=== PATIENT | male | born 1930 | race Asian ===

== ENCOUNTER 2017-01-02 12:37 | Inpatient (IN) | payer MEDICARE, OTHER ==
[~2017-01-02] VITALS: Ht 162.6 cm; Wt 54.4 kg
[~2017-01-02 12:37] MED LIST: UNOBMED
--- NOTE | 2017-01-02 12:38 | Emergency Room Report ---
History of Present Illness General Chief Complaint: Dyspnea/Respdistress Source: Patient, EMS Present Illness HPI The patient presents with worsening dyspnea over the last 3-4 months. It's worse at rest when he is supine. He also states isn't exertional quality to it to. The medics were called to the private physician's office with the complaint of chest pain. The patient denies is to the ER nurse however he also denies any other medical problems and other people with him states that he has congestive heart failure and hypertension. Nonsmoker. Paramedics treated the patient with aspirin and nitroglycerin. They stated this did not help him. Prostate problems. Frequency. Hip replacement. No fevers, chills, NVD, joint pain, [place], depression, rashes. Allergies: Coded Allergies: No Known Allergies (Unverified , 01/02/17) Patient History Past Medical History: see triage record Past Surgical History: other - R hip Social History: Reports: smoking - former Social History Narrative at home Reviewed Nursing Documentation: PMH: Agreed, PSxH: Agreed Review of Systems All Other Systems: negative except mentioned in HPI Physical Exam Vital Signs Date Time Temp Pulse Resp B/P (MAP) Pulse Ox O2 Delivery O2 Flow Rate FiO2 01/02/17 12:27 97.9 82 18 122/65 96 Room Air Sp02 EP Interpretation: reviewed, normal General Appearance: well appearing, no apparent distress, GCS 15 Head: normocephalic Eyes: bilateral eye normal inspection ENT: moist mucus membranes Neck: supple Respiratory: chest non-tender, lungs clear, normal breath sounds Cardiovascular #1: regular rate, rhythm, no edema Cardiovascular #2: 2+ radial (R) Gastrointestinal: normal inspection, normal bowel sounds, non tender, no mass, non-distended Musculoskeletal: back normal, gait/station normal, normal range of motion Neurologic: alert, oriented x3, grossly normal Psychiatric: mood/affect normal Skin: normal inspection, warm/dry Medical Decision Making Diagnostic Impression: Primary Impression: Chest pain Qualified Codes: R07.9 - Chest pain, unspecified Additional Impression: Dyspnea Qualified Codes: R06.00 - Dyspnea, unspecified ER Course The patient presents with shortness of breath for 3 or 4 months although his doctor's office suggested he was having chest pain today. Differential includes acute myocardial infarction, acute coronary syndrome, congestive heart failure, costochondritis, pulmonary embolus, bronchitis, pneumothorax amongst others. The patient is a very poor historian as he denies medical problems but has congestive heart failure and hypertension. Evaluation will be with EKG, labs and chest x-ray. The plan is based on results he'll be treated. Patient received aspirin in the field. Based on the fact of his age and his poor history, the patient will be admitted for observation and cardiology evaluation. EKG shows left ventricular hypertrophy and left axis deviation. No acute changes. Chest x-ray shows cardiomegaly and increased gomez bilaterally. There is no infiltrate. Labs are significant for negative troponin. The patient is unchanged however nitroglycerin is given to the patient. The patient admitted to telemetry for cardiac observation. Dr. Ferguson came to evaluate the patient. Laboratory Tests Test 01/02/17 12:56 01/02/17 19:20 01/03/17 07:50 01/03/17 17:18 White Blood Count 4.8 K/UL (4.8-10.8) 7.0 K/UL (4.8-10.8) Red Blood Count 4.82 M/UL (4.70-6.10) 4.72 M/UL (4.70-6.10) Hemoglobin 14.3 G/DL (14.2-18.0) 14.7 G/DL (14.2-18.0) Hematocrit 43.8 % (42.0-52.0) 43.0 % (42.0-52.0) Mean Corpuscular Volume 91 FL (80-99) 91 FL (80-99) Mean Corpuscular Hemoglobin 29.7 PG (27.0-31.0) 31.1 PG (27.0-31.0) H Mean Corpuscular Hemoglobin Concent 32.6 G/DL (32.0-36.0) 34.1 G/DL (32.0-36.0) Red Cell Distribution Width 12.0 % (11.6-14.8) 11.9 % (11.6-14.8) Platelet Count 170 K/UL (150-450) 177 K/UL (150-450) Mean Platelet Volume 7.2 FL (6.5-10.1) 7.2 FL (6.5-10.1) Neutrophils (%) (Auto) 65.0 % (45.0-75.0) 79.4 % (45.0-75.0) H Lymphocytes (%) (Auto) 22.0 % (20.0-45.0) 12.3 % (20.0-45.0) L Monocytes (%) (Auto) 8.8 % (1.0-10.0) 5.9 % (1.0-10.0) Eosinophils (%) (Auto) 3.1 % (0.0-3.0) H 1.5 % (0.0-3.0) Basophils (%) (Auto) 1.2 % (0.0-2.0) 0.9 % (0.0-2.0) Prothrombin Time 10.5 SEC (9.30-11.50) 10.7 SEC (9.30-11.50) Prothrombin Time INR 1.0 (0.9-1.1) 1.0 (0.9-1.1) PTT 29 SEC (23-33) 33 SEC (23-33) Urine Color Pale yellow Urine Appearance Clear Urine pH 6 (4.5-8.0) Urine Specific [place] 1.020 (1.005-1.035) Urine Protein Negative (NEGATIVE) Urine Glucose (UA) Negative (NEGATIVE) Urine Ketones Negative (NEGATIVE) Urine Occult Blood 1+ (NEGATIVE) H Urine Nitrite Negative (NEGATIVE) Urine Bilirubin Negative (NEGATIVE) Urine Urobilinogen Normal MG/DL (0.0-1.0) Urine Leukocyte Esterase Negative (NEGATIVE) Urine RBC 0-2 /HPF (0 - 0) H Urine WBC 0-2 /HPF (0 - 0) Urine Squamous Epithelial Cells Occasional /LPF Urine Bacteria Occasional /HPF (NONE) Urine Mucus Moderate /LPF (NONE/OCC) H Sodium Level 141 mEQ/L (135-145) 135 mEQ/L (135-145) Potassium Level 3.2 mEQ/L (3.4-4.9) L 4.3 mEQ/L (3.4-4.9) Chloride Level 109 mEQ/L (98-107) H 100 mEQ/L (98-107) Carbon Dioxide Level 21 mEQ/L (20-30) 21 mEQ/L (20-30) Anion Gap 11 (5-15) 14 (5-15) Blood Urea Nitrogen 12 mg/dL (7-23) 18 mg/dL (7-23) Creatinine 1.0 mg/dL (0.7-1.2) 0.9 mg/dL (0.7-1.2) Estimate Glomerular Filtration Rate mL/min (>60) mL/min (>60) Glucose Level 110 mg/dL (74-106) H 138 mg/dL (74-106) H Calcium Level 6.9 mg/dL (8.6-10.2) L 8.8 mg/dL (8.6-10.2) # Total Bilirubin 0.7 mg/dL (0.0-1.2) Aspartate Amino Transferase (AST) 13 U/L (5-40) Alanine Aminotransferase (ALT) 10 U/L (3-41) Alkaline Phosphatase 53 U/L (40-129) Total Creatine Kinase 52 U/L (38-174) Troponin I < 0.30 ng/mL (<=0.30) < 0.30 ng/mL (<=0.30) < 0.30 ng/mL (<=0.30) Pro-B-Type Natriuretic Peptide 29 pg/mL (0-450) Total Protein 5.3 g/dL (6.6-8.7) L Albumin 3.1 g/dL (3.5-5.2) L Globulin 2.2 g/dL Albumin/Globulin Ratio 1.4 (1.0-2.7) C-Reactive Protein, Quantitative < 0.3 mg/dL (< 0.5) Triglycerides Level 75 mg/dL (< 150) Cholesterol Level 166 mg/dL (< 200) LDL Cholesterol 99 mg/dL (60-99) HDL Cholesterol 52 mg/dL (> 60) Cholesterol/HDL Ratio 3.2 (3.3-4.4) L Thyroid Stimulating Hormone (TSH) 0.947 uIU/mL (0.300-4.500) Ammonia 47 umol/L (16-60) Hepatitis A IgM Antibody Pending Hepatitis B Surface Antigen Pending Hepatitis B Core IgM Antibody Pending Hepatitis C Antibody Pending EKG Diagnostic Results Rate: normal Rhythm: NSR ST Segments: no acute changes - LVH and LAD ASA given to the pt in ED: Yes - field Rhythm Strip Diag. Results EP Interpretation: yes Rhythm: NSR, no PVC's, no ectopy Chest X-Ray Diagnostic Results Chest X-Ray Diagnostic Results : Chest X-Ray Ordered: Yes # of Views/Limited/Complete: 1 View Indication: Shortness of Breath EP Interpretation: Yes Interpretation: no consolidation, no effusion, no pneumothorax, other - cardiomegally and Status: improved Disposition: ADMITTED INPATIENT Condition: Serious Jam Hernandez M.D. Jan 02, 2017 12:38
[2017-01-02 13:10] VITALS: BP 130/72
[2017-01-02 13:13] LABS: BASOPHILS % (AUTO) 1.2 % (0.0-2.0); EOSINOPHILS % (AUTO) 3.1 % (0.0-3.0); MEAN CORPUSCULAR HEMOGLOBIN 29.7 PG (27.0-31.0); MEAN CORPUSCULAR HGB CONC 32.6 G/DL (32.0-36.0); MEAN CORPUSCULAR VOLUME 91 FL (80-99); MEAN PLATELET VOLUME 7.2 FL (6.5-10.1); MONOCYTES % (AUTO) 8.8 % (1.0-10.0); PLATELET COUNT 170 K/UL (150-450); RED BLOOD COUNT 4.82 M/UL (4.70-6.10); WHITE BLOOD COUNT 4.8 K/UL (4.8-10.8)
[2017-01-02 13:14] LABS: APPEARANCE,URINE CLEAR; KETONES,URINE NEGATIVE (NEGATIVE); LEUKOCYTE ESTERASE ,URINE NEGATIVE (NEGATIVE); NITRITE,URINE NEGATIVE (NEGATIVE); PH,URINE 6 (4.5-8.0); PROTEIN,URINE NEGATIVE (NEGATIVE); UROBILINOGEN,URINE NORMAL MG/DL (0.0-1.0)
[2017-01-02 13:19] LABS: PROTHROMBIN TIME 10.5 SEC (9.30-11.50)
[2017-01-02 13:23] LABS: BACTERIA,URINE OCCASIONAL /HPF; MUCUS,URINE MODERATE /LPF (NONE/OCC); RBC,URINE 0-2 /HPF (0 - 0); SQUAMOUS EPITHELIAL CELL,UR OCCASIONAL /LPF (NONE/OCC); WBC,URINE 0-2 /HPF (0 - 0)
[2017-01-02 13:24] LABS: ALANINE AMINOTRANSFERASE 10 U/L (3-41); ALBUMIN/GLOBULIN RATIO 1.4 (1.0-2.7); ANION GAP 11 (5-15); ASPARTATE AMINO TRANSFERASE 13 U/L (5-40); CALCIUM 6.9 mg/dL (8.6-10.2); CARBON DIOXIDE 21 mEQ/L (20-30); CHLORIDE 109 mEQ/L (98-107); HEMOLYSIS 13; POTASSIUM 3.2 mEQ/L (3.4-4.9); SODIUM 141 mEQ/L (135-145); TOTAL PROTEIN 5.3 g/dL (6.6-8.7)
[2017-01-02 13:25] LABS: TROPONIN I < 0.30 ng/mL (<=0.30)
[2017-01-02] MEDS ORDERED: Nitroglycerin 2% oint pkt TOPIC ONE (14:30)
[2017-01-02 14:57] VITALS: BP 126/68
[2017-01-02] MEDS ORDERED: DuoNeb 0.5-3(2.5)mg/3ml neb HHN PRN (15:45)
[2017-01-02] MEDS ORDERED: Diltiazem 25mg/5ml IV PRN (15:45)
[2017-01-02] MEDS ORDERED: Morphine Sulfate 2mg/ml Inj IVP PRN (15:45)
[2017-01-02] MEDS ORDERED: Ketorolac 30mg Inj IV PRN (15:45)
[2017-01-02] MEDS ORDERED: Nitroglycerin Subl 0.4mg tab (Bottle Of 25) SL PRN (15:45)
[2017-01-02] MEDS ORDERED: Enalaprilat 2.5mg/2ml Inj IV PRN (15:45)
[2017-01-02] MEDS ORDERED: Miralax 17gm pkt ORAL PRN (15:45)
[2017-01-02 16:00] VITALS: BP 140/71
[2017-01-02] MEDS ORDERED: KCl 10% 40mEq/30ml liquid NG ONE (17:15)
[2017-01-02] MEDS ORDERED: KCl 10% 40mEq/30ml liquid ORAL SCH (17:45)
[2017-01-02] MEDS ORDERED: KCl 10% 40mEq/30ml liquid NG SCH (17:45)
[2017-01-02] MEDS ORDERED: KCl 10% 20 mEq/15ml liquid ORAL SCH (17:45)
[2017-01-02] MEDS ORDERED: Pneumococcal Vaccine 25mcg/0.5ml IM ONE (18:30)
[2017-01-02 20:03] VITALS: BP 111/67
[2017-01-02 20:20] LABS: TROPONIN I < 0.30 ng/mL (<=0.30)
[2017-01-02] MEDS: Heparin 5000 units/ml inj SUBQ SCH (20:33)
[2017-01-02 23:54] VITALS: BP 119/71
[2017-01-03 03:56] VITALS: BP 121/68
[2017-01-03 08:00] VITALS: BP 117/56
[2017-01-03] MEDS: Aspirin Baby 81mg ORAL SCH (08:10)
[2017-01-03] MEDS: Heparin 5000 units/ml inj SUBQ SCH ×2 (08:15→20:50)
[2017-01-03 08:40] LABS: BASOPHILS % (AUTO) 0.9 % (0.0-2.0); EOSINOPHILS % (AUTO) 1.5 % (0.0-3.0); LYMPHOCYTES % (AUTO) 12.3 % (20.0-45.0); MEAN CORPUSCULAR HEMOGLOBIN 31.1 PG (27.0-31.0); MEAN CORPUSCULAR HGB CONC 34.1 G/DL (32.0-36.0); MEAN CORPUSCULAR VOLUME 91 FL (80-99); MEAN PLATELET VOLUME 7.2 FL (6.5-10.1); MONOCYTES % (AUTO) 5.9 % (1.0-10.0); NEUTROPHILS % (AUTO) 79.4 % (45.0-75.0); PLATELET COUNT 177 K/UL (150-450); RED BLOOD COUNT 4.72 M/UL (4.70-6.10); RED CELL DISTRIBUTION WIDTH 11.9 % (11.6-14.8)
[2017-01-03 08:43] LABS: PROTHROMBIN TIME 10.7 SEC (9.30-11.50); TROPONIN I < 0.30 ng/mL (<=0.30)
[2017-01-03 08:45] LABS: CHOLESTEROL 166 mg/dL (< 200); CHOLESTEROL/HDL RATIO 3.2 (3.3-4.4); CRP QUANT < 0.3 mg/dL (< 0.5); HEMOLYSIS 1; LDL CHOLESTEROL (CALC.) 99 mg/dL (60-99)
--- NOTE | 2017-01-03 08:47 | History and Physical ---
History of Present Illness General Date patient seen: Jan 02, 2017 Time patient seen: 17:00 Reason for Hospitalization: Dyspnea/Respdistress Present Illness HPI 86 yea old male with hx of HTN, CAD, presented to ER with worsening dyspnea over the last 3-4 months. It's worse at rest when he is supine. The medics were called to the private physician's office with the complaint of chest pain. Paramedics treated the patient with aspirin and nitroglycerin. He is admitted to telemetry for further w/u,. Allergies: Coded Allergies: No Known Allergies (Unverified , 01/02/17) Medication History Miscellaneous Medications Unable to Obtain Medications (Unable To Obtain Meds), (Reported) Patient History Healthcare decision maker Hayden Huffman (son) Resuscitation status Full Code Advanced Directive on File Past Medical/Surgical History Past Medical/Surgical History: (1) CAD (coronary artery disease) (2) Hypertension Review of Systems All Other Systems: negative except mentioned in HPI Physical Exam General Appearance: WD/WN Lines, tubes and drains: peripheral, central line HEENT: normocephalic, atraumatic Neck: non-tender, normal alignment, normal inspection Respiratory/Chest: chest wall non-tender, lungs clear Breasts: no masses Cardiovascular/Chest: normal peripheral pulses, normal rate Last 24 Hour Vital Signs Date Time Temp Pulse Resp B/P (MAP) Pulse Ox O2 Delivery O2 Flow Rate FiO2 01/03/17 04:00 67 01/03/17 03:56 98.3 77 18 121/68 96 Room Air 01/03/17 00:00 57 01/02/17 23:54 97.8 79 19 119/71 96 Room Air 01/02/17 20:03 97.3 86 20 111/67 95 Room Air 01/02/17 20:00 88 01/02/17 19:45 91 18 Room Air 01/02/17 16:00 97.5 72 20 140/71 95 Room Air 01/02/17 16:00 70 01/02/17 15:25 97.9 67 24 126/68 97 Room Air 01/02/17 14:57 97.9 67 24 126/68 97 Room Air 01/02/17 14:56 126/68 01/02/17 13:10 82 24 Room Air 01/02/17 13:10 97.9 82 24 130/72 95 Room Air 01/02/17 12:27 97.9 82 18 122/65 96 Room Air Laboratory Tests Test 01/02/17 12:56 01/02/17 19:20 01/03/17 07:50 White Blood Count 4.8 K/UL (4.8-10.8) 7.0 K/UL (4.8-10.8) Red Blood Count 4.82 M/UL (4.70-6.10) 4.72 M/UL (4.70-6.10) Hemoglobin 14.3 G/DL (14.2-18.0) 14.7 G/DL (14.2-18.0) Hematocrit 43.8 % (42.0-52.0) 43.0 % (42.0-52.0) Mean Corpuscular Volume 91 FL (80-99) 91 FL (80-99) Mean Corpuscular Hemoglobin 29.7 PG (27.0-31.0) 31.1 PG (27.0-31.0) H Mean Corpuscular Hemoglobin Concent 32.6 G/DL (32.0-36.0) 34.1 G/DL (32.0-36.0) Red Cell Distribution Width 12.0 % (11.6-14.8) 11.9 % (11.6-14.8) Platelet Count 170 K/UL (150-450) 177 K/UL (150-450) Mean Platelet Volume 7.2 FL (6.5-10.1) 7.2 FL (6.5-10.1) Neutrophils (%) (Auto) 65.0 % (45.0-75.0) 79.4 % (45.0-75.0) H Lymphocytes (%) (Auto) 22.0 % (20.0-45.0) 12.3 % (20.0-45.0) L Monocytes (%) (Auto) 8.8 % (1.0-10.0) 5.9 % (1.0-10.0) Eosinophils (%) (Auto) 3.1 % (0.0-3.0) H 1.5 % (0.0-3.0) Basophils (%) (Auto) 1.2 % (0.0-2.0) 0.9 % (0.0-2.0) Prothrombin Time 10.5 SEC (9.30-11.50) Pending Prothromb Time International Ratio 1.0 (0.9-1.1) Pending Activated Partial Thromboplast Time 29 SEC (23-33) Pending Urine Color Pale yellow Urine Appearance Clear Urine pH 6 (4.5-8.0) Urine Specific [place] 1.020 (1.005-1.035) Urine Protein Negative (NEGATIVE) Urine Glucose (UA) Negative (NEGATIVE) Urine Ketones Negative (NEGATIVE) Urine Occult Blood 1+ (NEGATIVE) H Urine Nitrite Negative (NEGATIVE) Urine Bilirubin Negative (NEGATIVE) Urine Urobilinogen Normal MG/DL (0.0-1.0) Urine Leukocyte Esterase Negative (NEGATIVE) Urine RBC 0-2 /HPF (0 - 0) H Urine WBC 0-2 /HPF (0 - 0) Urine Squamous Epithelial Cells Occasional /LPF Urine Bacteria Occasional /HPF (NONE) Urine Mucus Moderate /LPF (NONE/OCC) H Sodium Level 141 mEQ/L (135-145) Potassium Level 3.2 mEQ/L (3.4-4.9) L Chloride Level 109 mEQ/L (98-107) H Carbon Dioxide Level 21 mEQ/L (20-30) Anion Gap 11 (5-15) Blood Urea Nitrogen 12 mg/dL (7-23) Creatinine 1.0 mg/dL (0.7-1.2) Estimat Glomerular Filtration Rate mL/min (>60) Glucose Level 110 mg/dL (74-106) H Calcium Level 6.9 mg/dL (8.6-10.2) L Total Bilirubin 0.7 mg/dL (0.0-1.2) Aspartate Amino Transf (AST/SGOT) 13 U/L (5-40) Alanine Aminotransferase (ALT/SGPT) 10 U/L (3-41) Alkaline Phosphatase 53 U/L (40-129) Total Creatine Kinase 52 U/L (38-174) Troponin I < 0.30 ng/mL (<=0.30) < 0.30 ng/mL (<=0.30) Pending Pro-B-Type Natriuretic Peptide 29 pg/mL (0-450) Total Protein 5.3 g/dL (6.6-8.7) L Albumin 3.1 g/dL (3.5-5.2) L Globulin 2.2 g/dL Albumin/Globulin Ratio 1.4 (1.0-2.7) C-Reactive Protein, Quantitative Pending Triglycerides Level Pending Cholesterol Level Pending LDL Cholesterol Pending HDL Cholesterol Pending Cholesterol/HDL Ratio Pending Thyroid Stimulating Hormone (TSH) Pending Height (Feet): 5 Height (Inches): 4.00 Weight (Pounds): 120 Medications Current Medications Medications (Trade) Dose Ordered Sig/Abbi Route PRN Reason Start Time Stop Time Status Last Admin Dose Admin Acetaminophen (Tylenol) 650 mg Q4H PRN ORAL FEVER 01/02/17 15:45 02/01/17 15:44 Albuterol/ Ipratropium (DuoNeb 0.5-3(2.5)mg/3ml) 3 ml Q4H PRN HHN Shortness of Breath 01/02/17 15:45 01/07/17 15:44 Aspirin (ASA) 162 mg DAILY ORAL 01/03/17 09:00 02/02/17 08:59 01/03/17 08:10 Diltiazem HCl (Cardizem) 10 mg Q1H PRN IV HR > 120 01/02/17 15:45 02/01/17 15:44 Enalaprilat (Vasotec) 2.5 mg Q6H PRN IV SBP > 160 01/02/17 15:45 02/01/17 15:44 Heparin Sodium (Porcine) (Heparin 5000 units/ml) 5,000 units EVERY 12 HOURS SUBQ 01/02/17 21:00 02/01/17 20:59 01/03/17 08:15 Morphine Sulfate (Morphine Sulfate) 2 mg Q4H PRN IVP severe Pain (Pain Scale 7-10) 01/02/17 15:45 01/09/17 15:44 Nitroglycerin (Ntg) 0.4 mg Every 5 Minutes PRN SL Prn Chest Pain 01/02/17 15:45 02/01/17 15:44 Ondansetron HCl (Zofran) 4 mg Q6H PRN IVP Nausea & Vomiting 01/02/17 15:45 02/01/17 15:44 Pantoprazole (Protonix) 40 mg DAILY ORAL 01/03/17 09:00 02/02/17 08:59 01/03/17 08:10 Polyethylene Glycol (Miralax) 17 gm DAILYPRN PRN ORAL Constipation 01/02/17 15:45 02/01/17 15:44 Temazepam (Restoril) 15 mg HSPRN PRN ORAL Insomnia 01/02/17 15:45 01/09/17 15:44 Assessment/Plan Problem List: (1) Dyspnea ICD Codes: R06.00 - Dyspnea, unspecified SNOMED: 663112257 (2) Costochondritis ICD Codes: M94.0 - Chondrocostal junction syndrome [[place]] SNOMED: 79768730 (3) ACS (acute coronary syndrome) ICD Codes: I24.9 - Acute ischemic heart disease, unspecified SNOMED: 567430539 (4) CAD (coronary artery disease) ICD Codes: I25.10 - Atherosclerotic heart disease of [place] coronary artery without angina pectoris SNOMED: 48251680 (5) Hypertension ICD Codes: I10 - Essential (primary) hypertension SNOMED: 88607589 Assessment/Plan echo cardiac evaluation serial ekg, troponin symptomatic treatment pt/ot\ GAIL GONZALEZ Jan 03, 2017 08:47
--- NOTE | 2017-01-03 08:48 | Pulmonology Progress Note ---
Assessment/Plan Problems: (1) Dyspnea (2) Costochondritis (3) ACS (acute coronary syndrome) (4) CAD (coronary artery disease) (5) Hypertension Assessment/Plan check echo cardio to see titrate fio2 dvt prophylaxis watch BP Subjective ROS Limited/Unobtainable: No Constitutional: Reports: no symptoms HEENT: Repors: no symptoms Allergies: Coded Allergies: No Known Allergies (Unverified , 01/02/17) Objective Last 24 Hour Vital Signs Date Time Temp Pulse Resp B/P (MAP) Pulse Ox O2 Delivery O2 Flow Rate FiO2 01/03/17 04:00 67 01/03/17 03:56 98.3 77 18 121/68 96 Room Air 01/03/17 00:00 57 01/02/17 23:54 97.8 79 19 119/71 96 Room Air 01/02/17 20:03 97.3 86 20 111/67 95 Room Air 01/02/17 20:00 88 01/02/17 19:45 91 18 Room Air 01/02/17 16:00 97.5 72 20 140/71 95 Room Air 01/02/17 16:00 70 01/02/17 15:25 97.9 67 24 126/68 97 Room Air 01/02/17 14:57 97.9 67 24 126/68 97 Room Air 01/02/17 14:56 126/68 01/02/17 13:10 82 24 Room Air 01/02/17 13:10 97.9 82 24 130/72 95 Room Air 01/02/17 12:27 97.9 82 18 122/65 96 Room Air General Appearance: WD/WN HEENT: normocephalic, atraumatic Respiratory/Chest: chest wall non-tender, lungs clear Cardiovascular: normal peripheral pulses, regular rhythm Abdomen: normal bowel sounds, soft, non tender, no scars Extremities: no cyanosis Laboratory Tests 01/02/17 12:56: White Blood Count 4.8, Red Blood Count 4.82, Hemoglobin 14.3, Hematocrit 43.8, Mean Corpuscular Volume 91, Mean Corpuscular Hemoglobin 29.7, Mean Corpuscular Hemoglobin Concent 32.6, Red Cell Distribution Width 12.0, Platelet Count 170, Mean Platelet Volume 7.2, Neutrophils (%) (Auto) 65.0, Lymphocytes (%) (Auto) 22.0, Monocytes (%) (Auto) 8.8, Eosinophils (%) (Auto) 3.1H, Basophils (%) (Auto ) 1.2, Prothrombin Time 10.5, Prothromb Time International Ratio 1.0, Activated Partial Thromboplast Time 29, Urine Color Pale yellow, Urine Appearance Clear, Urine pH 6, Urine Specific [place] 1.020, Urine Protein Negative, Urine Glucose (UA) Negative, Urine Ketones Negative, Urine Occult Blood 1+H, Urine Nitrite Negative, Urine Bilirubin Negative, Urine Urobilinogen Normal, Urine Leukocyte Esterase Negative, Urine RBC 0-2H, Urine WBC 0-2, Urine Squamous Epithelial Cells Occasional, Urine Bacteria Occasional, Urine Mucus ModerateH, Sodium Level 141, Potassium Level 3.2L, Chloride Level 109H, Carbon Dioxide Level 21, Anion Gap 11, Blood Urea Nitrogen 12, Creatinine 1.0, Estimat Glomerular Filtration Rate , Glucose Level 110H, Calcium Level 6.9L, Total Bilirubin 0.7, Aspartate Amino Transf (AST/SGOT) 13, Alanine Aminotransferase (ALT/SGPT) 10, Alkaline Phosphatase 53, Total Creatine Kinase 52, Troponin I < 0.30, Pro-B- Type Natriuretic Peptide 29, Total Protein 5.3L, Albumin 3.1L, Globulin 2.2, Albumin/Globulin Ratio 1.4 01/02/17 19:20: Troponin I < 0.30 01/03/17 07:50: White Blood Count 7.0, Red Blood Count 4.72, Hemoglobin 14.7, Hematocrit 43.0, Mean Corpuscular Volume 91, Mean Corpuscular Hemoglobin 31.1H, Mean Corpuscular Hemoglobin Concent 34.1, Red Cell Distribution Width 11.9, Platelet Count 177, Mean Platelet Volume 7.2, Neutrophils (%) (Auto) 79.4H, Lymphocytes (%) (Auto) 12.3L, Monocytes (%) (Auto) 5.9, Eosinophils (%) (Auto) 1.5, Basophils (%) (Auto ) 0.9, Prothrombin Time 10.7, Prothromb Time International Ratio 1.0, Activated Partial Thromboplast Time 33, Troponin I < 0.30, C-Reactive Protein, Quantitative < 0.3, Triglycerides Level 75, Cholesterol Level 166, LDL Cholesterol 99, HDL Cholesterol 52, Cholesterol/HDL Ratio 3.2L, Thyroid Stimulating Hormone (TSH) [Pending] Current Medications Medications (Trade) Dose Ordered Sig/Abbi Route PRN Reason Start Time Stop Time Status Last Admin Dose Admin Acetaminophen (Tylenol) 650 mg Q4H PRN ORAL FEVER 01/02/17 15:45 02/01/17 15:44 Albuterol/ Ipratropium (DuoNeb 0.5-3(2.5)mg/3ml) 3 ml Q4H PRN HHN Shortness of Breath 01/02/17 15:45 01/07/17 15:44 Aspirin (ASA) 162 mg DAILY ORAL 01/03/17 09:00 02/02/17 08:59 01/03/17 08:10 Diltiazem HCl (Cardizem) 10 mg Q1H PRN IV HR > 120 01/02/17 15:45 02/01/17 15:44 Enalaprilat (Vasotec) 2.5 mg Q6H PRN IV SBP > 160 01/02/17 15:45 02/01/17 15:44 Heparin Sodium (Porcine) (Heparin 5000 units/ml) 5,000 units EVERY 12 HOURS SUBQ 01/02/17 21:00 02/01/17 20:59 01/03/17 08:15 Morphine Sulfate (Morphine Sulfate) 2 mg Q4H PRN IVP severe Pain (Pain Scale 7-10) 01/02/17 15:45 01/09/17 15:44 Nitroglycerin (Ntg) 0.4 mg Every 5 Minutes PRN SL Prn Chest Pain 01/02/17 15:45 02/01/17 15:44 Ondansetron HCl (Zofran) 4 mg Q6H PRN IVP Nausea & Vomiting 01/02/17 15:45 02/01/17 15:44 Pantoprazole (Protonix) 40 mg DAILY ORAL 01/03/17 09:00 02/02/17 08:59 01/03/17 08:10 Polyethylene Glycol (Miralax) 17 gm DAILYPRN PRN ORAL Constipation 01/02/17 15:45 02/01/17 15:44 Temazepam (Restoril) 15 mg HSPRN PRN ORAL Insomnia 01/02/17 15:45 01/09/17 15:44 GAIL GONZALEZ Jan 03, 2017 08:48
[2017-01-03 08:50] LABS: THYROID STIMULATING HORMONE 0.947 uIU/mL (0.300-4.500)
[2017-01-03 11:57] LABS: ANION GAP 14 (5-15); CALCIUM 8.8 mg/dL (8.6-10.2); CARBON DIOXIDE 21 mEQ/L (20-30); CHLORIDE 100 mEQ/L (98-107); CREATININE 0.9 mg/dL (0.7-1.2); HEMOLYSIS 9; POTASSIUM 4.3 mEQ/L (3.4-4.9); SODIUM 135 mEQ/L (135-145)
[2017-01-03 12:00] VITALS: BP 119/62
--- NOTE | 2017-01-03 12:20 | Cardiology Report ---
APPROVED REPORT EXAM: Two-dimensional and M-mode echocardiogram with Doppler and color Doppler. INDICATION Left Ventricular Function M-Mode DIMENSIONS IVSd0.9 (0.7-1.1cm)Left Atrium (MM)3.7 (1.6-4.0cm) LVDd4.6 (3.5-5.6cm)Aortic Root3.0 (2.0-3.7cm) PWd1.1 (0.7-1.1cm)Aortic Cusp Exc.2.0 (1.5-2.0cm) LVDs2.7 (2.5-4.0cm) PWs1.8 cm Normal left ventricular chamber size. Mildly depressed systolic function and wall motion. Left ventricular ejection fraction estimated to be 50-55 %. No evidence of ventricular hypertrophy. Anterior Echo-free space, may be due to pericardial fat or effusion. All other cardiac chamber sizes are within normal limits. Mild focal aortic valve sclerosis with adequate cusp excursion. Mildly thickened mitral valve leaflets with normal excursion. Mild mitral annulus and aortic root calcification. Normal pulmonic valve structure. Normal tricuspid valve structure. IVC is normal in size with physiologic collapse. A color flow and spectral Doppler study was performed and revealed: Mild aortic regurgitation. Mild to moderate mitral regurgitation. Mitral diastolic velocities suggest reduced left ventricular relaxation (Grade I). Mild tricuspid regurgitation. Tricuspid systolic velocities suggests peak right ventricular systolic pressure of 28 mmHg. No pulmonic regurgitation present.
--- NOTE | 2017-01-03 12:35 | Cardiology Report ---
APPROVED REPORT EKG Measurement Heart [id number] Normal sinus rhythm Left axis deviation Minimal voltage criteria for LVH, may be normal variant Abnormal ECG
[2017-01-03 16:36] VITALS: BP 114/62
[2017-01-03] MEDS ORDERED: TAMSULOSIN HCL0.4 MG ORAL (17:34)
[2017-01-03] MEDS ORDERED: GABAPENTIN100 MG ORAL (17:34)
[2017-01-03] MEDS ORDERED: PRAVASTATIN SOD20 M1 ORAL (17:34)
[2017-01-03] MEDS ORDERED: NAMZARIC 28 MG1 EACH PO (17:34)
[2017-01-03] MEDS ORDERED: PROSCAR5 MG ORAL (17:34)
[2017-01-03] MEDS ORDERED: OMEPRAZOLE40 M1 ORAL (17:34)
[2017-01-03] MEDS ORDERED: PLAVIX75 MG ORAL (17:34)
[2017-01-03 20:00] VITALS: BP 151/61
[2017-01-04] VITALS: BP 124/62
--- NOTE | 2017-01-04 03:30 | Consultation ---
DATE OF CONSULTATION: 01/03/2017 HEMATOLOGY/ONCOLOGY CONSULTATION ADMITTING PHYSICIAN: Raffy Ferguson M.D. REASON FOR CONSULTATION: Weight loss, rule out malignancy. CURRENT COMPLAINT AND HISTORY OF PRESENT ILLNESS: Dear Dr. Ferguson: Today, I had an opportunity to see one of your patients, Armida Sotomayor, who as you well aware is 86 years old delightful gentleman with past medical history of weight loss, malnutrition, decreased appetite, shortness of breath, and chest pressure. The patient was seen in our office on 01/02/2017 complaining of worsening dyspnea over the last three to four months. During evaluation, it was found the patient developed unstable angina. My service was called to handle the issue of weight loss, malnutrition, debilitation, and failure to thrive. PAST MEDICAL HISTORY: 1. Coronary artery disease. 2. Hypertension. 3. Dyspnea. 4. Weight loss. 5. Malnutrition. 6. Failure to thrive. MEDICATIONS: 1. Aspirin. 2. Protonix. 3. Heparin subcutaneous. 4. Nitroglycerin. 5. Tylenol. 6. Morphine. 7. Zofran. ALLERGIES: NKDA. SOCIAL HISTORY: No history of smoking. No history of alcohol abuse. No history of illicit drug use. FAMILY HISTORY: Noncontributory. REVIEW OF SYSTEMS: General Description: The patient is not in any significant distress, but looks chronically ill. Respiratory: Mild shortness of breath particularly on exertion. Neuromuscular: The patient claimed muscle aches. PHYSICAL EXAMINATION: VITAL SIGNS: T-max 97 degrees. Respiratory rate 20. Heart rate 80. Blood pressure 130/80. HEENT: Head: Normocephalic and atraumatic. NECK: Supple. No thyroid enlargement. No lymphadenopathy. LUNGS: Decreased breath sounds bilaterally with few rhonchi in the bases. HEART: S1 and S2 regular. ABDOMEN: Soft and benign. No organomegaly present. Bowel sounds present. EXTREMITIES: No cyanosis, clubbing, or edema. LABORATORY AND DIAGNOSTIC DATA: Creatinine 0.9 and sodium 135. Hematology showed WBC 7.2, hemoglobin 14.7, hematocrit 43.0, and platelets 177,000. Coagulation INR 1.0. IMPRESSION: 1. Weight loss. 2. Rule out occult malignancy. 3. Malnutrition. 4. Failure to thrive. 5. Coronary artery disease. 6. Hypertension. 7. Unstable angina. 8. Debilitation. RECOMMENDATION: 1. Watch count. 2. Watch coagulopathy. 3. Check tumor markers. 4. Calorie count. 5. Skin care. 6. Nutrition. 7. Cardiology followup. 8. Respiratory treatment. 9. Pulmonary followup. 10. Continue current treatment. 11. Discuss with the staff. Luis M Turner MD DR: Aliyah JOB#: [id number] CC:
[2017-01-04 04:00] VITALS: BP 132/57
[2017-01-04 07:47] LABS: EOSINOPHILS % (AUTO) 1.9 % (0.0-3.0); LYMPHOCYTES % (AUTO) 18.8 % (20.0-45.0); MEAN CORPUSCULAR HEMOGLOBIN 31.5 PG (27.0-31.0); MEAN CORPUSCULAR HGB CONC 34.9 G/DL (32.0-36.0); MEAN CORPUSCULAR VOLUME 90 FL (80-99); MEAN PLATELET VOLUME 6.7 FL (6.5-10.1); MONOCYTES % (AUTO) 9.7 % (1.0-10.0); NEUTROPHILS % (AUTO) 68.7 % (45.0-75.0); PLATELET COUNT 181 K/UL (150-450); RED BLOOD COUNT 4.82 M/UL (4.70-6.10); RED CELL DISTRIBUTION WIDTH 12.1 % (11.6-14.8); WHITE BLOOD COUNT 5.9 K/UL (4.8-10.8)
[2017-01-04 08:00] VITALS: BP 113/58
[2017-01-04] MEDS: Aspirin Baby 81mg ORAL SCH (08:42)
[2017-01-04] MEDS: Heparin 5000 units/ml inj SUBQ SCH ×2 (08:46→22:08)
[2017-01-04 12:00] VITALS: BP 128/61
--- NOTE | 2017-01-04 12:22 | Pulmonology Progress Note ---
Assessment/Plan Problems: (1) Dyspnea (2) Costochondritis (3) ACS (acute coronary syndrome) (4) CAD (coronary artery disease) (5) Hypertension Assessment/Plan echo reviewed cardio to see, still waiting all enzymes negative titrate fio2 dvt prophylaxis watch BP keep in teli Subjective ROS Limited/Unobtainable: No Constitutional: Reports: no symptoms HEENT: Repors: no symptoms Respiratory: Reports: no symptoms Cardiovascular: Reports: no symptoms Allergies: Coded Allergies: No Known Allergies (Unverified , 01/02/17) Objective Last 24 Hour Vital Signs Date Time Temp Pulse Resp B/P (MAP) Pulse Ox O2 Delivery O2 Flow Rate FiO2 01/04/17 08:00 97.0 67 20 113/58 97 Room Air 01/04/17 07:44 76 01/04/17 07:31 66 18 Room Air 01/04/17 04:00 97.3 63 20 132/57 95 Room Air 01/04/17 04:00 67 01/04/17 00:00 59 01/04/17 00:00 97.0 63 20 124/62 97 Room Air 01/03/17 20:00 97.7 66 20 151/61 95 Room Air 01/03/17 20:00 69 01/03/17 19:49 72 18 Room Air 01/03/17 16:36 96.8 61 19 114/62 96 Room Air 01/03/17 15:48 60 General Appearance: WD/WN HEENT: normocephalic, atraumatic Respiratory/Chest: chest wall non-tender, lungs clear, chest wall tender Cardiovascular: normal peripheral pulses, normal rate Abdomen: normal bowel sounds, soft, non tender Genitourinary: normal external genitalia Extremities: no cyanosis Skin: no rash 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 Laboratory Tests 01/03/17 17:18: Ammonia 47, Hepatitis A IgM Antibody Negative, Hepatitis B Surface Antigen Negative, Hepatitis B Core IgM Antibody Negative, Hepatitis C Antibody <0.1 01/04/17 06:40: White Blood Count 5.9, Red Blood Count 4.82, Hemoglobin 15.2, Hematocrit 43.6, Mean Corpuscular Volume 90, Mean Corpuscular Hemoglobin 31.5H, Mean Corpuscular Hemoglobin Concent 34.9, Red Cell Distribution Width 12.1, Platelet Count 181, Mean Platelet Volume 6.7, Neutrophils (%) (Auto) 68.7, Lymphocytes (%) (Auto) 18.8L, Monocytes (%) (Auto) 9.7, Eosinophils (%) (Auto) 1.9, Basophils (%) (Auto ) 1.0 Current Medications Medications (Trade) Dose Ordered Sig/Abbi Route PRN Reason Start Time Stop Time Status Last Admin Dose Admin Acetaminophen (Tylenol) 650 mg Q4H PRN ORAL FEVER 01/02/17 15:45 02/01/17 15:44 Albuterol/ Ipratropium (DuoNeb 0.5-3(2.5)mg/3ml) 3 ml Q4H PRN HHN Shortness of Breath 01/02/17 15:45 01/07/17 15:44 Aspirin (ASA) 162 mg DAILY ORAL 01/03/17 09:00 02/02/17 08:59 01/04/17 08:42 Diltiazem HCl (Cardizem) 10 mg Q1H PRN IV HR > 120 01/02/17 15:45 02/01/17 15:44 Enalaprilat (Vasotec) 2.5 mg Q6H PRN IV SBP > 160 01/02/17 15:45 02/01/17 15:44 Heparin Sodium (Porcine) (Heparin 5000 units/ml) 5,000 units EVERY 12 HOURS SUBQ 01/02/17 21:00 02/01/17 20:59 01/04/17 08:46 Morphine Sulfate (Morphine Sulfate) 2 mg Q4H PRN IVP severe Pain (Pain Scale 7-10) 01/02/17 15:45 01/09/17 15:44 Nitroglycerin (Ntg) 0.4 mg Every 5 Minutes PRN SL Prn Chest Pain 01/02/17 15:45 02/01/17 15:44 Ondansetron HCl (Zofran) 4 mg Q6H PRN IVP Nausea & Vomiting 01/02/17 15:45 02/01/17 15:44 Pantoprazole (Protonix) 40 mg DAILY ORAL 01/03/17 09:00 02/02/17 08:59 01/04/17 08:41 Polyethylene Glycol (Miralax) 17 gm DAILYPRN PRN ORAL Constipation 01/02/17 15:45 02/01/17 15:44 Temazepam (Restoril) 15 mg HSPRN PRN ORAL Insomnia 01/02/17 15:45 01/09/17 15:44 GAIL GONZALEZ Jan 04, 2017 12:22
--- NOTE | 2017-01-04 15:28 | General Progress Note ---
Assessment/Plan Status: stable Assessment/Plan IMPRESSION: 1. Weight loss. 2. Rule out occult malignancy. 3. Malnutrition. 4. Failure to thrive. 5. Coronary artery disease. 6. Hypertension. 7. Unstable angina. 8. Debilitation. RECOMMENDATION: 1. Watch count. 2. Watch coagulopathy. 3. Check tumor markers. 4. Calorie count. 5. Skin care. 6. Nutrition. 7. Cardiology followup. 8. Respiratory treatment. 9. Pulmonary followup. 10. Continue current treatment. 11. Discuss with the staff. Subjective Date patient seen: Jan 04, 2017 Time patient seen: 06:00 Constitutional: Denies: no symptoms, chills, diaphoresis, fever, malaise, weakness, other HEENT: Denies: no symptoms, eye pain, blurred vision, tearing, double vision, ear pain, ear discharge, nose pain, nose congestion, throat pain, throat swelling, mouth pain, mouth swelling, other Cardiovascular: Denies: no symptoms, chest pain, edema, irregular heart rate, lightheadedness, palpitations, syncope, other Respiratory: Denies: no symptoms, cough, orthopnea, shortness of breath, SOB with excertion, SOB at rest, sputum, stridor, wheezing, other Gastrointestinal/Abdominal: Denies: no symptoms, abdomen distended, abdominal pain, black stools, tarry stools, blood in stool, constipated, diarrhea, difficulty swallowing, nausea, poor appetite, poor fluid intake, rectal bleeding , vomiting, other Genitourinary: Denies: no symptoms, burning, discharge, frequency, flank pain, hematuria, incontinence, pain, urgency, other Neurologic/Psychiatric: Denies: no symptoms, anxiety, depressed, emotional problems, headache, numbness, paresthesia, pre-existing deficit, seizure, tingling, tremors, weakness, other Allergies: Coded Allergies: No Known Allergies (Unverified , 01/02/17) Subjective Patient sleeping. Afebrile. Comfortable. No acute distress. Objective Last 24 Hour Vital Signs Date Time Temp Pulse Resp B/P (MAP) Pulse Ox O2 Delivery O2 Flow Rate FiO2 01/04/17 12:00 97.2 58 20 128/61 97 Room Air 01/04/17 11:33 56 01/04/17 08:00 97.0 67 20 113/58 97 Room Air 01/04/17 07:44 76 01/04/17 07:31 66 18 Room Air 01/04/17 04:00 97.3 63 20 132/57 95 Room Air 01/04/17 04:00 67 01/04/17 00:00 59 01/04/17 00:00 97.0 63 20 124/62 97 Room Air 01/03/17 20:00 97.7 66 20 151/61 95 Room Air 01/03/17 20:00 69 01/03/17 19:49 72 18 Room Air 01/03/17 16:36 96.8 61 19 114/62 96 Room Air 01/03/17 15:48 60 Laboratory Tests 01/03/17 17:18: Ammonia 47, Hepatitis A IgM Antibody Negative, Hepatitis B Surface Antigen Negative, Hepatitis B Core IgM Antibody Negative, Hepatitis C Antibody <0.1 01/04/17 06:40: White Blood Count 5.9, Red Blood Count 4.82, Hemoglobin 15.2, Hematocrit 43.6, Mean Corpuscular Volume 90, Mean Corpuscular Hemoglobin 31.5H, Mean Corpuscular Hemoglobin Concent 34.9, Red Cell Distribution Width 12.1, Platelet Count 181, Mean Platelet Volume 6.7, Neutrophils (%) (Auto) 68.7, Lymphocytes (%) (Auto) 18.8L, Monocytes (%) (Auto) 9.7, Eosinophils (%) (Auto) 1.9, Basophils (%) (Auto ) 1.0 Height (Feet): 5 Height (Inches): 4.00 Weight (Pounds): 120 General Appearance: WD/WN Neck: normal alignment Cardiovascular: normal rate, regular rhythm Respiratory/Chest: chest wall non-tender, lungs clear, normal breath sounds Abdomen: normal bowel sounds, non tender Neurologic: bi developer II-XII grossly normal JOSEPH LEAL Jan 04, 2017 15:28
[2017-01-04 16:00] VITALS: BP 137/87
[2017-01-04 19:05] LABS: TROPONIN I < 0.30 ng/mL (<=0.30)
[2017-01-04 20:16] VITALS: BP 118/57
--- NOTE | 2017-01-04 22:11 | Cardiology Progress Note ---
Subjective Subjective [id number] Objective Last 24 Hour Vital Signs Date Time Temp Pulse Resp B/P (MAP) Pulse Ox O2 Delivery O2 Flow Rate FiO2 01/04/17 20:16 96.8 65 20 118/57 95 Room Air 01/04/17 16:00 97.3 62 21 137/87 96 Room Air 01/04/17 16:00 63 01/04/17 12:00 97.2 58 20 128/61 97 Room Air 01/04/17 11:33 56 01/04/17 08:00 97.0 67 20 113/58 97 Room Air 01/04/17 07:44 76 01/04/17 07:31 66 18 Room Air 01/04/17 04:00 97.3 63 20 132/57 95 Room Air 01/04/17 04:00 67 01/04/17 00:00 59 01/04/17 00:00 97.0 63 20 124/62 97 Room Air Intake and Output 01/04/17 01/05/17 19:00 07:00 Intake Total 480 ml Output Total 1300 ml Balance -820 ml Intake Oral 480 ml Output Urine Total 1300 ml Laboratory Tests Test 01/04/17 06:40 01/04/17 18:28 White Blood Count 5.9 K/UL (4.8-10.8) Red Blood Count 4.82 M/UL (4.70-6.10) Hemoglobin 15.2 G/DL (14.2-18.0) Hematocrit 43.6 % (42.0-52.0) Mean Corpuscular Volume 90 FL (80-99) Mean Corpuscular Hemoglobin 31.5 PG (27.0-31.0) H Mean Corpuscular Hemoglobin Concent 34.9 G/DL (32.0-36.0) Red Cell Distribution Width 12.1 % (11.6-14.8) Platelet Count 181 K/UL (150-450) Mean Platelet Volume 6.7 FL (6.5-10.1) Neutrophils (%) (Auto) 68.7 % (45.0-75.0) Lymphocytes (%) (Auto) 18.8 % (20.0-45.0) L Monocytes (%) (Auto) 9.7 % (1.0-10.0) Eosinophils (%) (Auto) 1.9 % (0.0-3.0) Basophils (%) (Auto) 1.0 % (0.0-2.0) Troponin I < 0.30 ng/mL (<=0.30) CHRYSTAL ORNELAS Jan 04, 2017 22:11
--- NOTE | 2017-01-04 23:58 | Consultation ---
History of Present Illness General Chief Complaint: Dyspnea/Respdistress Present Illness HPI 86 yea old male with hx of HTN, CAD, presented to ER with worsening dyspnea over the last 3-4 months. the pt is spanish speaking so was in the room. the pt presented with new onset of memory problems and depression. Allergies: Coded Allergies: No Known Allergies (Unverified , 01/02/17) Medication History Scheduled Clopidogrel Bisulfate* (Plavix*), 75 MG ORAL DAILY, (Reported) Finasteride* (Proscar*), 5 MG ORAL DAILY, (Reported) Gabapentin* (Gabapentin*), 100 MG ORAL DAILY, (Reported) Memantine HCl/Donepezil HCl (Namzaric 28 mg-10 mg Capsule), 1 EACH PO DAILY, ( Reported) Omeprazole (Omeprazole), 40 MG ORAL DAILY, (Reported) Pravastatin Sod* (Pravastatin Sod*), 20 MG ORAL BEDTIME, (Reported) Tamsulosin Hcl (Tamsulosin Hcl*), 0.8 MG ORAL BEDTIME, (Reported) Miscellaneous Medications Unable to Obtain Medications (Unable To Obtain Meds), (Reported) Patient History History Provided By: Patient, Family Member, Medical Record, PMD Healthcare decision maker Hayden Huffman (son) Resuscitation status Full Code Advanced Directive on File Past Medical/Surgical History Past Medical/Surgical History: (1) CAD (coronary artery disease) (2) Hypertension (3) Costochondritis (4) ACS (acute coronary syndrome) (5) Dyspnea (6) Chest pain Review of Systems Constitutional: Reports: malaise, weakness Psychiatric: Reports: prior hx, depressed feelings, emotional problems Physical Exam General Appearance: no apparent distress, alert Neurologic: alert, oriented x 3, responsive, depressed affect Last 24 Hour Vital Signs Date Time Temp Pulse Resp B/P (MAP) Pulse Ox O2 Delivery O2 Flow Rate FiO2 01/04/17 20:16 96.8 65 20 118/57 95 Room Air 01/04/17 20:00 55 01/04/17 19:30 64 20 Room Air 21 01/04/17 16:00 97.3 62 21 137/87 96 Room Air 01/04/17 16:00 63 01/04/17 12:00 97.2 58 20 128/61 97 Room Air 01/04/17 11:33 56 01/04/17 08:00 97.0 67 20 113/58 97 Room Air 01/04/17 07:44 76 01/04/17 07:31 66 18 Room Air 01/04/17 04:00 97.3 63 20 132/57 95 Room Air 01/04/17 04:00 67 01/04/17 00:00 59 01/04/17 00:00 97.0 63 20 124/62 97 Room Air Intake and Output 01/04/17 01/05/17 19:00 07:00 Intake Total 480 ml Output Total 1300 ml Balance -820 ml Intake Oral 480 ml Output Urine Total 1300 ml Laboratory Tests Test 01/04/17 06:40 01/04/17 18:28 White Blood Count 5.9 K/UL (4.8-10.8) Red Blood Count 4.82 M/UL (4.70-6.10) Hemoglobin 15.2 G/DL (14.2-18.0) Hematocrit 43.6 % (42.0-52.0) Mean Corpuscular Volume 90 FL (80-99) Mean Corpuscular Hemoglobin 31.5 PG (27.0-31.0) H Mean Corpuscular Hemoglobin Concent 34.9 G/DL (32.0-36.0) Red Cell Distribution Width 12.1 % (11.6-14.8) Platelet Count 181 K/UL (150-450) Mean Platelet Volume 6.7 FL (6.5-10.1) Neutrophils (%) (Auto) 68.7 % (45.0-75.0) Lymphocytes (%) (Auto) 18.8 % (20.0-45.0) L Monocytes (%) (Auto) 9.7 % (1.0-10.0) Eosinophils (%) (Auto) 1.9 % (0.0-3.0) Basophils (%) (Auto) 1.0 % (0.0-2.0) Troponin I < 0.30 ng/mL (<=0.30) Height (Feet): 5 Height (Inches): 4.00 Weight (Pounds): 120 Medications Current Medications Medications (Trade) Dose Ordered Sig/Abbi Route PRN Reason Start Time Stop Time Status Last Admin Dose Admin Acetaminophen (Tylenol) 650 mg Q4H PRN ORAL FEVER 01/02/17 15:45 02/01/17 15:44 Albuterol/ Ipratropium (DuoNeb 0.5-3(2.5)mg/3ml) 3 ml Q4H PRN HHN Shortness of Breath 01/02/17 15:45 01/07/17 15:44 Aspirin (ASA) 162 mg DAILY ORAL 01/03/17 09:00 02/02/17 08:59 01/04/17 08:42 Clopidogrel Bisulfate (Plavix) 75 mg DAILY ORAL 01/05/17 09:00 02/04/17 08:59 Diltiazem HCl (Cardizem) 10 mg Q1H PRN IV HR > 120 01/02/17 15:45 02/01/17 15:44 Enalaprilat (Vasotec) 2.5 mg Q6H PRN IV SBP > 160 01/02/17 15:45 02/01/17 15:44 Finasteride (Proscar) 5 mg DAILY ORAL 01/05/17 09:00 02/04/17 08:59 Gabapentin (Neurontin) 100 mg DAILY ORAL 01/05/17 09:00 02/04/17 08:59 Heparin Sodium (Porcine) (Heparin 5000 units/ml) 5,000 units EVERY 12 HOURS SUBQ 01/02/17 21:00 02/01/17 20:59 01/04/17 22:08 Morphine Sulfate (Morphine Sulfate) 2 mg Q4H PRN IVP severe Pain (Pain Scale 7-10) 01/02/17 15:45 01/09/17 15:44 Nitroglycerin (Ntg) 0.4 mg Every 5 Minutes PRN SL Prn Chest Pain 01/02/17 15:45 02/01/17 15:44 Ondansetron HCl (Zofran) 4 mg Q6H PRN IVP Nausea & Vomiting 01/02/17 15:45 02/01/17 15:44 Pantoprazole (Protonix) 40 mg DAILY ORAL 01/03/17 09:00 02/02/17 08:59 01/04/17 08:41 Polyethylene Glycol (Miralax) 17 gm DAILYPRN PRN ORAL Constipation 01/02/17 15:45 02/01/17 15:44 Pravastatin Sodium (Pravachol) 20 mg BEDTIME ORAL 01/05/17 21:00 02/04/17 20:59 Tamsulosin HCl (Flomax) 0.4 mg BEDTIME ORAL 01/05/17 21:00 02/04/17 20:59 Temazepam (Restoril) 15 mg HSPRN PRN ORAL Insomnia 01/02/17 15:45 01/09/17 15:44 Assessment/Plan Status: stable Assessment/Plan dementia depression -aricept -Parminder Sr M.D. Jan 04, 2017 23:57
[2017-01-05] VITALS: BP 135/63
[2017-01-05 04:00] VITALS: BP 133/60
--- NOTE | 2017-01-05 04:32 | Consultation ---
DATE OF CONSULTATION: 01/04/2017 CONSULTING PHYSICIAN: Amanda Rider M.D. ATTENDING PHYSICIAN: Raffy Ferguson M.D. REFERRING PHYSICIAN: Raffy Ferguson M.D. This consultation was done as coverage for Dr. Adryan Aamya. HISTORY OF PRESENT ILLNESS: Taken from the patient. I invited the bilingual interpreter, the nurse, and the patient presented with complaint of shortness of breath. He states this is a long complaint and it is not recent, may be at least several months. He states he cannot breathe regardless of his position. He has difficulty breathing. He denies orthopnea. He sleeps on 1 pillow. He walks around but he states he is short of breath. He denies any cough or wheezing. No history of pulmonary or cardiac disease. There is no chest pain. PAST MEDICAL HISTORY: Significant for benign prostatic hypertrophy and hypertension. ALLERGIES: None reported. HABITS: He denies history of drinking, smoking, or drug abuse. He lives at home. REVIEW OF SYSTEMS: Otherwise was done and was negative. For any other findings, there is no pulmonary disease, the patient apparently was referred from the office of his primary care physician. PHYSICAL EXAMINATION: GENERAL: This is a comfortable-appearing elderly man. VITAL SIGNS: Blood pressure 130/60, heart rate 50, oxygen saturation is normal on room air, and temperature was normal. HEENT: PERRLA. EOMI. NECK: Supple. There is no jugular venous distention. Normal carotid upstroke. There is no bruit. LUNGS: Clear to auscultation bilaterally. HEART: Regular. There is mildly accented A2, otherwise no significant abnormalities. No gallop. ABDOMEN: His abdomen is soft, nontender. EXTREMITIES: Lower extremity, distal pulses palpable. There is no edema. NEUROLOGICAL: He appears to be intact. LABORATORY AND DIAGNOSTIC DATA: His EKG is significant for sinus rhythm with nonspecific ST and T changes. His echocardiogram did not reveal any significant abnormalities and his ejection fraction is said to be 65%. His chest x-ray did not show any infiltrates and the rest of the laboratories were reviewed and unremarkable. The only thing is that his lower extremity venous duplex revealed presence of DVT. IMPRESSION AND RECOMMENDATION: I would suggest workup the patient for possible pulmonary emboli. I do not see any cardiac reason for him to be short of breath. His right ventricle was normal on the echo, I would still suggest workup for pulmonary emboli. Thank you very much for your consultation. Amanda Rider M.D. DR: Husam JOB#: [id number] CC: TERA
[2017-01-05 07:09] LABS: BASOPHILS % (AUTO) 0.8 % (0.0-2.0); EOSINOPHILS % (AUTO) 1.1 % (0.0-3.0); LYMPHOCYTES % (AUTO) 12.6 % (20.0-45.0); MEAN CORPUSCULAR HEMOGLOBIN 30.2 PG (27.0-31.0); MEAN CORPUSCULAR HGB CONC 33.2 G/DL (32.0-36.0); MEAN CORPUSCULAR VOLUME 91 FL (80-99); MONOCYTES % (AUTO) 8.9 % (1.0-10.0); NEUTROPHILS % (AUTO) 76.6 % (45.0-75.0); PLATELET COUNT 188 K/UL (150-450); RED BLOOD COUNT 5.16 M/UL (4.70-6.10); WHITE BLOOD COUNT 7.8 K/UL (4.8-10.8)
[2017-01-05 07:35] LABS: ALANINE AMINOTRANSFERASE 12 U/L (3-41); ALBUMIN/GLOBULIN RATIO 1.2 (1.0-2.7); ANION GAP 14 (5-15); ASPARTATE AMINO TRANSFERASE 15 U/L (5-40); CALCIUM 8.6 mg/dL (8.6-10.2); CARBON DIOXIDE 25 mEQ/L (20-30); CHLORIDE 102 mEQ/L (98-107); CREATININE 0.8 mg/dL (0.7-1.2); HEMOLYSIS 29; POTASSIUM 4.3 mEQ/L (3.4-4.9); SODIUM 141 mEQ/L (135-145); TOTAL PROTEIN 6.7 g/dL (6.6-8.7)
[2017-01-05 07:54] VITALS: BP 125/70
[2017-01-05] MEDS: Heparin 5000 units/ml inj SUBQ SCH ×2 (09:17→21:18)
[2017-01-05] MEDS: Aspirin Baby 81mg ORAL SCH (09:20)
[2017-01-05 11:25] VITALS: BP 116/55
--- NOTE | 2017-01-05 12:03 | Pulmonology Progress Note ---
Assessment/Plan Assessment/Plan ASSESSMENT chest pain r/o ACS costochondritis dyspnea HTN weight loss r/o occult malignancy CAD [facility] tele serial troponin negative ECG no acute ischemic changes patient was ruled out fro acute NC cardio follows ECHO with pEF 50-55% and RVSP of 28, mild to moderate MR lipid panel stable BP management with Vasotec prn pain management with Nitro and MS prn O2 HHN prn continue ASA cardio recommended w/up for possible PE currently on RA pulse ox stable CXR negative for any acute cardiopulmonary pathology Venous Duplex BLE D dimer heme follows DVT GI prophylaxis hepatitis panel negative w/up for occult malignancy due to weight loss -per heme dietary eval PT/OT case discussed and evaluated by supervising physician Subjective Allergies: Coded Allergies: No Known Allergies (Unverified , 01/02/17) Subjective denies chest pain, SOB on RA pulse ox stable Objective Last 24 Hour Vital Signs Date Time Temp Pulse Resp B/P (MAP) Pulse Ox O2 Delivery O2 Flow Rate FiO2 01/05/17 11:25 97.6 76 21 116/55 95 Room Air 01/05/17 07:54 97.3 85 20 125/70 94 Room Air 01/05/17 07:29 91 01/05/17 06:34 81 17 Room Air 01/05/17 04:00 71 01/05/17 04:00 97.5 69 20 133/60 84 Room Air 01/05/17 00:00 57 01/05/17 00:00 97.0 62 20 135/63 95 Room Air 01/04/17 20:16 96.8 65 20 118/57 95 Room Air 01/04/17 20:00 55 01/04/17 19:30 64 20 Room Air 21 01/04/17 16:00 97.3 62 21 137/87 96 Room Air 01/04/17 16:00 63 01/04/17 12:00 97.2 58 20 128/61 97 Room Air General Appearance: no acute distress, other - awake, elderly, weak , confused male in NAD HEENT: normocephalic, atraumatic, anicteric Respiratory/Chest: lungs clear, no respiratory distress, no accessory muscle use Cardiovascular: normal rate, regular rhythm Abdomen: soft, non tender, non distended Extremities: no edema, pedal pulses normal Neurologic/Psychiatric: abnormal gait, alert, normal mood/affect Musculoskeletal: atrophy - BLE Laboratory Tests 01/04/17 18:28: Troponin I < 0.30 01/05/17 05:35: White Blood Count 7.8, Red Blood Count 5.16, Hemoglobin 15.6, Hematocrit 46.9, Mean Corpuscular Volume 91, Mean Corpuscular Hemoglobin 30.2, Mean Corpuscular Hemoglobin Concent 33.2, Red Cell Distribution Width 12.0, Platelet Count 188, Mean Platelet Volume 7.0, Neutrophils (%) (Auto) 76.6H, Lymphocytes (%) (Auto) 12.6L, Monocytes (%) (Auto) 8.9, Eosinophils (%) (Auto) 1.1, Basophils (%) (Auto ) 0.8, Sodium Level 141, Potassium Level 4.3, Chloride Level 102, Carbon Dioxide Level 25, Anion Gap 14, Blood Urea Nitrogen 24H, Creatinine 0.8, Estimat Glomerular Filtration Rate , Glucose Level 104, Calcium Level 8.6, Total Bilirubin 1.0, Aspartate Amino Transf (AST/SGOT) 15, Alanine Aminotransferase (ALT/SGPT) 12, Alkaline Phosphatase 70, Pro-B-Type Natriuretic Peptide 41, Total Protein 6.7, Albumin 3.7, Globulin 3.0, Albumin/Globulin Ratio 1.2 Current Medications Medications (Trade) Dose Ordered Sig/Abbi Route PRN Reason Start Time Stop Time Status Last Admin Dose Admin Acetaminophen (Tylenol) 650 mg Q4H PRN ORAL FEVER 01/02/17 15:45 02/01/17 15:44 Albuterol/ Ipratropium (DuoNeb 0.5-3(2.5)mg/3ml) 3 ml Q4H PRN HHN Shortness of Breath 01/02/17 15:45 01/07/17 15:44 Aspirin (ASA) 162 mg DAILY ORAL 01/03/17 09:00 02/02/17 08:59 01/05/17 09:20 Clopidogrel Bisulfate (Plavix) 75 mg DAILY ORAL 01/05/17 09:00 02/04/17 08:59 01/05/17 09:20 Diltiazem HCl (Cardizem) 10 mg Q1H PRN IV HR > 120 01/02/17 15:45 02/01/17 15:44 Donepezil HCl (Aricept) 5 mg QHS ORAL 01/05/17 21:00 10/4/17 20:59 Enalaprilat (Vasotec) 2.5 mg Q6H PRN IV SBP > 160 01/02/17 15:45 02/01/17 15:44 Finasteride (Proscar) 5 mg DAILY ORAL 01/05/17 09:00 02/04/17 08:59 01/05/17 09:20 Gabapentin (Neurontin) 100 mg DAILY ORAL 01/05/17 09:00 02/04/17 08:59 01/05/17 09:20 Heparin Sodium (Porcine) (Heparin 5000 units/ml) 5,000 units EVERY 12 HOURS SUBQ 01/02/17 21:00 02/01/17 20:59 01/05/17 09:17 Morphine Sulfate (Morphine Sulfate) 2 mg Q4H PRN IVP severe Pain (Pain Scale 7-10) 01/02/17 15:45 01/09/17 15:44 Nitroglycerin (Ntg) 0.4 mg Every 5 Minutes PRN SL Prn Chest Pain 01/02/17 15:45 02/01/17 15:44 Ondansetron HCl (Zofran) 4 mg Q6H PRN IVP Nausea & Vomiting 01/02/17 15:45 02/01/17 15:44 Pantoprazole (Protonix) 40 mg DAILY ORAL 01/03/17 09:00 02/02/17 08:59 01/05/17 09:19 Polyethylene Glycol (Miralax) 17 gm DAILYPRN PRN ORAL Constipation 01/02/17 15:45 02/01/17 15:44 Pravastatin Sodium (Pravachol) 20 mg BEDTIME ORAL 01/05/17 21:00 02/04/17 20:59 Tamsulosin HCl (Flomax) 0.4 mg BEDTIME ORAL 01/05/17 21:00 02/04/17 20:59 Temazepam (Restoril) 15 mg HSPRN PRN ORAL Insomnia 01/02/17 15:45 01/09/17 15:44 Lupe Cannon NP (Vanchtein) Jan 05, 2017 12:03
[2017-01-05] MEDS ORDERED: DuoNeb 0.5-3(2.5)mg/3ml neb HHN PRN (14:00)
[2017-01-05 15:32] VITALS: BP 125/59
[2017-01-05 20:04] VITALS: BP 131/70
[2017-01-05] MEDS ORDERED: Donepezil 5mg Tab ORAL SCH (21:00)
[2017-01-05] MEDS ORDERED: Tamsulosin 0.4mg cap ORAL SCH (21:00)
--- NOTE | 2017-01-05 21:43 | Cardiology Progress Note ---
Assessment/Plan Assessment/Plan dyspnea no evidence of CHF Suggest work up for PUlmonary emboli Subjective Subjective the patient is resting comfortably he report feeling much better Objective Last 24 Hour Vital Signs Date Time Temp Pulse Resp B/P (MAP) Pulse Ox O2 Delivery O2 Flow Rate FiO2 01/05/17 20:07 78 18 Room Air 01/05/17 20:04 97.7 81 20 131/70 98 Room Air 01/05/17 16:00 77 01/05/17 15:32 97.9 74 21 125/59 92 Room Air 01/05/17 12:12 77 01/05/17 11:25 97.6 76 21 116/55 95 Room Air 01/05/17 07:54 97.3 85 20 125/70 94 Room Air 01/05/17 07:29 91 01/05/17 06:34 81 17 Room Air 01/05/17 04:00 71 01/05/17 04:00 97.5 69 20 133/60 84 Room Air 01/05/17 00:00 57 01/05/17 00:00 97.0 62 20 135/63 95 Room Air General Appearance: no apparent distress EENT: PERRL/EOMI Neck: no JVD Rhythm: NSR Cardiovascular: normal peripheral pulses Respiratory/Chest: lungs clear Abdomen: soft Extremities: non-pitting Neurologic: depot agent II-XII grossly normal Intake and Output 01/05/17 01/06/17 19:00 07:00 Output Total 300 ml Balance -300 ml Output Urine Total 300 ml Laboratory Tests Test 01/05/17 05:35 White Blood Count 7.8 K/UL (4.8-10.8) Red Blood Count 5.16 M/UL (4.70-6.10) Hemoglobin 15.6 G/DL (14.2-18.0) Hematocrit 46.9 % (42.0-52.0) Mean Corpuscular Volume 91 FL (80-99) Mean Corpuscular Hemoglobin 30.2 PG (27.0-31.0) Mean Corpuscular Hemoglobin Concent 33.2 G/DL (32.0-36.0) Red Cell Distribution Width 12.0 % (11.6-14.8) Platelet Count 188 K/UL (150-450) Mean Platelet Volume 7.0 FL (6.5-10.1) Neutrophils (%) (Auto) 76.6 % (45.0-75.0) H Lymphocytes (%) (Auto) 12.6 % (20.0-45.0) L Monocytes (%) (Auto) 8.9 % (1.0-10.0) Eosinophils (%) (Auto) 1.1 % (0.0-3.0) Basophils (%) (Auto) 0.8 % (0.0-2.0) D-Dimer 493 ng/mL (<500) Sodium Level 141 mEQ/L (135-145) Potassium Level 4.3 mEQ/L (3.4-4.9) Chloride Level 102 mEQ/L (98-107) Carbon Dioxide Level 25 mEQ/L (20-30) Anion Gap 14 (5-15) Blood Urea Nitrogen 24 mg/dL (7-23) H Creatinine 0.8 mg/dL (0.7-1.2) Estimat Glomerular Filtration Rate mL/min (>60) Glucose Level 104 mg/dL (74-106) Calcium Level 8.6 mg/dL (8.6-10.2) Total Bilirubin 1.0 mg/dL (0.0-1.2) Aspartate Amino Transf (AST/SGOT) 15 U/L (5-40) Alanine Aminotransferase (ALT/SGPT) 12 U/L (3-41) Alkaline Phosphatase 70 U/L (40-129) Pro-B-Type Natriuretic Peptide 41 pg/mL (0-450) Total Protein 6.7 g/dL (6.6-8.7) Albumin 3.7 g/dL (3.5-5.2) Globulin 3.0 g/dL Albumin/Globulin Ratio 1.2 (1.0-2.7) CHRYSTAL ORNELAS Jan 05, 2017 21:42
[2017-01-06] VITALS (7 sets, daily range): BP systolic 111–149; BP diastolic 64–76
[2017-01-06] MEDS: Heparin 5000 units/ml inj SUBQ SCH (09:17)
[2017-01-06] MEDS: Aspirin Baby 81mg ORAL SCH (09:18)
[2017-01-06 09:24] LABS: MEAN CORPUSCULAR HEMOGLOBIN 31.3 PG (27.0-31.0); MEAN CORPUSCULAR HGB CONC 34.6 G/DL (32.0-36.0); MEAN CORPUSCULAR VOLUME 90 FL (80-99); MEAN PLATELET VOLUME 6.5 FL (6.5-10.1); PLATELET COUNT 160 K/UL (150-450); RED BLOOD COUNT 5.13 M/UL (4.70-6.10); RED CELL DISTRIBUTION WIDTH 11.8 % (11.6-14.8); WHITE BLOOD COUNT 9.3 K/UL (4.8-10.8)
[2017-01-06 09:33] LABS: ANION GAP 10 (5-15); CALCIUM 8.8 mg/dL (8.6-10.2); CARBON DIOXIDE 26 mEQ/L (20-30); CHLORIDE 96 mEQ/L (98-107); CREATININE 0.9 mg/dL (0.7-1.2); HEMOLYSIS 3; SODIUM 132 mEQ/L (135-145)
[2017-01-06 10:01] LABS: BAND NEUTROPHILS % (MANUAL) 2 % (0-8); BASOPHILS % (MANUAL) 0 % (0-2); EOSINOPHILS % (MANUAL) 0 % (0-3); LYMPHOCYTES % (MANUAL) 2 % (20-45); NEUTROPHILS % (MANUAL) 94 % (45-75); PLATELET ESTIMATE ADEQUATE; PLATELET MORPHOLOGY NORMAL; TOTAL CELLS COUNTED 100
--- NOTE | 2017-01-06 12:06 | Wound Care Consultation ---
Wound Assessment Wound Assessment : Wound Number: 1 Wound Present on Admission: Yes New Wound: No Status Change of Wound: No Wound Location Body Site Modif: left, lower Wound Location Body Site: abdomen Wound Type: lesion-etiology unknown Cheryle Test: Does not Cheryle Wound Thickness: Full Thickness Wound Length: 2.0 Wound Width: 2.0 Wound Depth: 0.3 Percent of Wound [place]/Red: 60 Percent of Wound Bed Yellow/Wh: 40 Wound Drainage Description: Serosanguineous Wound Drainage Amount: Moderate Wound Drainage Odor: None/Absent Tissue Surrounding Wound: Erythemic Wound General Appearance: Draining Wound Comment #1 Left lower quadrant open wound etiology unknown -Cleanse with saline pat dry apply Adaptic cover with bordered gauze daily and PRN soiled/dislodged -Assess on every drg changes and f/u accordingly for any changes -Optimize nutrition WILEY INFANTE RN Jan 06, 2017 12:06
--- NOTE | 2017-01-06 12:32 | Diagnostic Imaging Report ---
Indication: Dyspnea Comparison: 01/02/17 A single view chest radiograph was obtained. Findings: Bones are osteopenic. Aorta is calcified and ectatic. Heart is enlarged. Lungs are clear. Impression: No acute disease
--- NOTE | 2017-01-06 12:57 | Pulmonology Progress Note ---
Assessment/Plan Problems: (1) Dyspnea (2) Costochondritis (3) ACS (acute coronary syndrome) (4) CAD (coronary artery disease) (5) Hypertension Assessment/Plan echo reviewed no new episodes of SOB all enzymes negative titrate fio2 dvt prophylaxis watch BP dc planning outpatient w/u of occult malignancy Subjective ROS Limited/Unobtainable: No Constitutional: Reports: no symptoms HEENT: Repors: no symptoms Respiratory: Reports: no symptoms Allergies: Coded Allergies: No Known Allergies (Unverified , 01/02/17) Objective Last 24 Hour Vital Signs Date Time Temp Pulse Resp B/P (MAP) Pulse Ox O2 Delivery O2 Flow Rate FiO2 01/06/17 12:00 115 01/06/17 11:49 98.2 117 18 117/66 95 Room Air 01/06/17 08:41 97.9 108 18 127/69 96 Room Air 01/06/17 08:00 106 01/06/17 07:39 103 18 Room Air 01/06/17 04:20 97.0 95 20 111/64 98 Room Air 01/06/17 04:00 92 01/06/17 00:25 97.4 88 20 116/69 95 Room Air 01/06/17 00:00 110 01/05/17 20:07 78 18 Room Air 01/05/17 20:04 97.7 81 20 131/70 98 Room Air 01/05/17 20:00 74 01/05/17 16:00 77 01/05/17 15:32 97.9 74 21 125/59 92 Room Air Intake and Output 01/06/17 01/07/17 19:00 07:00 Intake Total 120 ml Output Total 150 ml Balance -30 ml Intake Oral 120 ml Output Urine Total 150 ml General Appearance: WD/WN HEENT: normocephalic, atraumatic Respiratory/Chest: chest wall non-tender, lungs clear Cardiovascular: normal peripheral pulses, normal rate Abdomen: soft, non tender, no organomegaly Genitourinary: normal external genitalia Extremities: no cyanosis Skin: no rash Laboratory Tests 01/06/17 08:40: White Blood Count 9.3, Red Blood Count 5.13, Hemoglobin 16.1, Hematocrit 46.4, Mean Corpuscular Volume 90, Mean Corpuscular Hemoglobin 31.3H, Mean Corpuscular Hemoglobin Concent 34.6, Red Cell Distribution Width 11.8, Platelet Count 160, Mean Platelet Volume 6.5, Neutrophils (%) (Auto) , Lymphocytes (%) (Auto) , Monocytes (%) (Auto) , Eosinophils (%) (Auto) , Basophils (%) (Auto) , Differential Total Cells Counted 100, Neutrophils % (Manual) 94H, Lymphocytes % (Manual) 2L, Monocytes % (Manual) 2, Eosinophils % (Manual) 0, Basophils % ( Manual) 0, Band Neutrophils 2, Platelet Estimate Adequate, Platelet Morphology Normal, Red Blood Cell Morphology Normal, Sodium Level 132L, Potassium Level 4.0 , Chloride Level 96L, Carbon Dioxide Level 26, Anion Gap 10, Blood Urea Nitrogen 23, Creatinine 0.9, Estimat Glomerular Filtration Rate , Glucose Level 147H, Calcium Level 8.8 Current Medications Medications (Trade) Dose Ordered Sig/Abbi Route PRN Reason Start Time Stop Time Status Last Admin Dose Admin Acetaminophen (Tylenol) 650 mg Q4H PRN ORAL FEVER 01/02/17 15:45 02/01/17 15:44 Albuterol/ Ipratropium (DuoNeb 0.5-3(2.5)mg/3ml) 3 ml Q4H PRN HHN Shortness of Breath 01/05/17 14:00 01/10/17 13:59 Aspirin (ASA) 162 mg DAILY ORAL 01/03/17 09:00 02/02/17 08:59 01/06/17 09:18 Clopidogrel Bisulfate (Plavix) 75 mg DAILY ORAL 01/05/17 09:00 02/04/17 08:59 01/06/17 09:16 Diltiazem HCl (Cardizem) 10 mg Q1H PRN IV HR > 120 01/02/17 15:45 02/01/17 15:44 Donepezil HCl (Aricept) 5 mg QHS ORAL 01/05/17 21:00 02/04/17 20:59 01/05/17 21:17 Enalaprilat (Vasotec) 2.5 mg Q6H PRN IV SBP > 160 01/02/17 15:45 02/01/17 15:44 Finasteride (Proscar) 5 mg DAILY ORAL 01/05/17 09:00 02/04/17 08:59 01/06/17 09:16 Gabapentin (Neurontin) 100 mg DAILY ORAL 01/05/17 09:00 02/04/17 08:59 01/06/17 09:16 Heparin Sodium (Porcine) (Heparin 5000 units/ml) 5,000 units EVERY 12 HOURS SUBQ 01/02/17 21:00 02/01/17 20:59 01/06/17 09:17 Morphine Sulfate (Morphine Sulfate) 2 mg Q4H PRN IVP severe Pain (Pain Scale 7-10) 01/02/17 15:45 01/09/17 15:44 Nitroglycerin (Ntg) 0.4 mg Every 5 Minutes PRN SL Prn Chest Pain 01/02/17 15:45 02/01/17 15:44 Ondansetron HCl (Zofran) 4 mg Q6H PRN IVP Nausea & Vomiting 01/02/17 15:45 02/01/17 15:44 Pantoprazole (Protonix) 40 mg DAILY ORAL 01/03/17 09:00 02/02/17 08:59 01/06/17 09:16 Polyethylene Glycol (Miralax) 17 gm DAILYPRN PRN ORAL Constipation 01/02/17 15:45 02/01/17 15:44 Pravastatin Sodium (Pravachol) 20 mg BEDTIME ORAL 01/05/17 21:00 02/04/17 20:59 01/05/17 21:17 Tamsulosin HCl (Flomax) 0.4 mg BEDTIME ORAL 01/05/17 21:00 02/04/17 20:59 01/05/17 21:17 Temazepam (Restoril) 15 mg HSPRN PRN ORAL Insomnia 01/02/17 15:45 01/09/17 15:44 GAIL GONZALEZ Jan 06, 2017 12:57
--- NOTE | 2017-01-06 16:14 | Cardiology Progress Note ---
Assessment/Plan Assessment/Plan dyspnea mild sinus tachy improved all trop neg final duplex neg cxr neg ekg neg not seem to have any sx at this time per son has been able to walk t br with walker Subjective Cardiovascular: Denies: chest pain, lightheadedness, palpitations Respiratory: Denies: shortness of breath, SOB with excertion Gastrointestinal/Abdominal: Denies: abdominal pain Genitourinary: Denies: burning Subjective son tranlating pt feel fine no sx , uses a walker to walk at home Objective Last 24 Hour Vital Signs Date Time Temp Pulse Resp B/P (MAP) Pulse Ox O2 Delivery O2 Flow Rate FiO2 01/06/17 15:45 120 145/70 01/06/17 15:41 99.1 114 18 145/70 95 Room Air 01/06/17 12:00 115 01/06/17 11:49 98.2 117 18 117/66 95 Room Air 01/06/17 08:41 97.9 108 18 127/69 96 Room Air 01/06/17 08:00 106 01/06/17 07:39 103 18 Room Air 01/06/17 04:20 97.0 95 20 111/64 98 Room Air 01/06/17 04:00 92 01/06/17 00:25 97.4 88 20 116/69 95 Room Air 01/06/17 00:00 110 01/05/17 20:07 78 18 Room Air 01/05/17 20:04 97.7 81 20 131/70 98 Room Air 01/05/17 20:00 74 General Appearance: alert Neck: supple Cardiovascular: normal rate, regular rhythm Respiratory/Chest: lungs clear, normal breath sounds Abdomen: normal bowel sounds, non tender, soft Extremities: no swelling Intake and Output 01/06/17 01/07/17 19:00 07:00 Intake Total 170 ml Output Total 150 ml Balance 20 ml Intake Oral 170 ml Output Urine Total 150 ml Laboratory Tests Test 01/06/17 08:40 White Blood Count 9.3 K/UL (4.8-10.8) Red Blood Count 5.13 M/UL (4.70-6.10) Hemoglobin 16.1 G/DL (14.2-18.0) Hematocrit 46.4 % (42.0-52.0) Mean Corpuscular Volume 90 FL (80-99) Mean Corpuscular Hemoglobin 31.3 PG (27.0-31.0) H Mean Corpuscular Hemoglobin Concent 34.6 G/DL (32.0-36.0) Red Cell Distribution Width 11.8 % (11.6-14.8) Platelet Count 160 K/UL (150-450) Mean Platelet Volume 6.5 FL (6.5-10.1) Neutrophils (%) (Auto) % (45.0-75.0) Lymphocytes (%) (Auto) % (20.0-45.0) Monocytes (%) (Auto) % (1.0-10.0) Eosinophils (%) (Auto) % (0.0-3.0) Basophils (%) (Auto) % (0.0-2.0) Differential Total Cells Counted 100 Neutrophils % (Manual) 94 % (45-75) H Lymphocytes % (Manual) 2 % (20-45) L Monocytes % (Manual) 2 % (1-10) Eosinophils % (Manual) 0 % (0-3) Basophils % (Manual) 0 % (0-2) Band Neutrophils 2 % (0-8) Platelet Estimate Adequate Platelet Morphology Normal Red Blood Cell Morphology Normal Sodium Level 132 mEQ/L (135-145) L Potassium Level 4.0 mEQ/L (3.4-4.9) Chloride Level 96 mEQ/L (98-107) L Carbon Dioxide Level 26 mEQ/L (20-30) Anion Gap 10 (5-15) Blood Urea Nitrogen 23 mg/dL (7-23) Creatinine 0.9 mg/dL (0.7-1.2) Estimat Glomerular Filtration Rate mL/min (>60) Glucose Level 147 mg/dL (74-106) H Calcium Level 8.8 mg/dL (8.6-10.2) MIKI JOHN Jan 06, 2017 16:14
--- NOTE | 2017-01-06 16:23 | Geriatric Progress Note ---
Assessment/Plan Assessment/Plan Dementia depression -Aricept -low dose ssri Subjective Constitutional: Reports: weakness Mood/Memory: Reports: depressed feelings Sleep: Reports: sleeps well Subjective Croatian speaking. Geriatric Geriatric Last 24 Hour Vital Signs Date Time Temp Pulse Resp B/P (MAP) Pulse Ox O2 Delivery O2 Flow Rate FiO2 01/06/17 15:45 120 145/70 01/06/17 15:41 99.1 114 18 145/70 95 Room Air 01/06/17 12:00 115 01/06/17 11:49 98.2 117 18 117/66 95 Room Air 01/06/17 08:41 97.9 108 18 127/69 96 Room Air 01/06/17 08:00 106 01/06/17 07:39 103 18 Room Air 01/06/17 04:20 97.0 95 20 111/64 98 Room Air 01/06/17 04:00 92 01/06/17 00:25 97.4 88 20 116/69 95 Room Air 01/06/17 00:00 110 01/05/17 20:07 78 18 Room Air 01/05/17 20:04 97.7 81 20 131/70 98 Room Air 01/05/17 20:00 74 Intake and Output 01/06/17 01/07/17 19:00 07:00 Intake Total 170 ml Output Total 150 ml Balance 20 ml Intake Oral 170 ml Output Urine Total 150 ml Laboratory Tests Test 01/06/17 08:40 White Blood Count 9.3 K/UL (4.8-10.8) Red Blood Count 5.13 M/UL (4.70-6.10) Hemoglobin 16.1 G/DL (14.2-18.0) Hematocrit 46.4 % (42.0-52.0) Mean Corpuscular Volume 90 FL (80-99) Mean Corpuscular Hemoglobin 31.3 PG (27.0-31.0) H Mean Corpuscular Hemoglobin Concent 34.6 G/DL (32.0-36.0) Red Cell Distribution Width 11.8 % (11.6-14.8) Platelet Count 160 K/UL (150-450) Mean Platelet Volume 6.5 FL (6.5-10.1) Neutrophils (%) (Auto) % (45.0-75.0) Lymphocytes (%) (Auto) % (20.0-45.0) Monocytes (%) (Auto) % (1.0-10.0) Eosinophils (%) (Auto) % (0.0-3.0) Basophils (%) (Auto) % (0.0-2.0) Differential Total Cells Counted 100 Neutrophils % (Manual) 94 % (45-75) H Lymphocytes % (Manual) 2 % (20-45) L Monocytes % (Manual) 2 % (1-10) Eosinophils % (Manual) 0 % (0-3) Basophils % (Manual) 0 % (0-2) Band Neutrophils 2 % (0-8) Platelet Estimate Adequate Platelet Morphology Normal Red Blood Cell Morphology Normal Sodium Level 132 mEQ/L (135-145) L Potassium Level 4.0 mEQ/L (3.4-4.9) Chloride Level 96 mEQ/L (98-107) L Carbon Dioxide Level 26 mEQ/L (20-30) Anion Gap 10 (5-15) Blood Urea Nitrogen 23 mg/dL (7-23) Creatinine 0.9 mg/dL (0.7-1.2) Estimat Glomerular Filtration Rate mL/min (>60) Glucose Level 147 mg/dL (74-106) H Calcium Level 8.8 mg/dL (8.6-10.2) Current Medications Medications (Trade) Dose Ordered Sig/Abbi Route PRN Reason Start Time Stop Time Status Last Admin Dose Admin Acetaminophen (Tylenol) 650 mg Q4H PRN ORAL FEVER 01/02/17 15:45 02/01/17 15:44 Albuterol/ Ipratropium (DuoNeb 0.5-3(2.5)mg/3ml) 3 ml Q4H PRN HHN Shortness of Breath 01/05/17 14:00 01/10/17 13:59 Aspirin (ASA) 162 mg DAILY ORAL 01/03/17 09:00 02/02/17 08:59 01/06/17 09:18 Clopidogrel Bisulfate (Plavix) 75 mg DAILY ORAL 01/05/17 09:00 02/04/17 08:59 01/06/17 09:16 Diltiazem HCl (Cardizem) 10 mg Q1H PRN IV HR > 120 01/02/17 15:45 02/01/17 15:44 01/06/17 15:45 Donepezil HCl (Aricept) 5 mg QHS ORAL 01/05/17 21:00 02/04/17 20:59 01/05/17 21:17 Enalaprilat (Vasotec) 2.5 mg Q6H PRN IV SBP > 160 01/02/17 15:45 02/01/17 15:44 Finasteride (Proscar) 5 mg DAILY ORAL 01/05/17 09:00 02/04/17 08:59 01/06/17 09:16 Gabapentin (Neurontin) 100 mg DAILY ORAL 01/05/17 09:00 02/04/17 08:59 01/06/17 09:16 Heparin Sodium (Porcine) (Heparin 5000 units/ml) 5,000 units EVERY 12 HOURS SUBQ 01/02/17 21:00 02/01/17 20:59 01/06/17 09:17 Morphine Sulfate (Morphine Sulfate) 2 mg Q4H PRN IVP severe Pain (Pain Scale 7-10) 01/02/17 15:45 01/09/17 15:44 Nitroglycerin (Ntg) 0.4 mg Every 5 Minutes PRN SL Prn Chest Pain 01/02/17 15:45 02/01/17 15:44 Ondansetron HCl (Zofran) 4 mg Q6H PRN IVP Nausea & Vomiting 01/02/17 15:45 02/01/17 15:44 Pantoprazole (Protonix) 40 mg DAILY ORAL 01/03/17 09:00 02/02/17 08:59 01/06/17 09:16 Polyethylene Glycol (Miralax) 17 gm DAILYPRN PRN ORAL Constipation 01/02/17 15:45 02/01/17 15:44 Pravastatin Sodium (Pravachol) 20 mg BEDTIME ORAL 01/05/17 21:00 02/04/17 20:59 01/05/17 21:17 Tamsulosin HCl (Flomax) 0.4 mg BEDTIME ORAL 01/05/17 21:00 02/04/17 20:59 01/05/17 21:17 Temazepam (Restoril) 15 mg HSPRN PRN ORAL Insomnia 01/02/17 15:45 01/09/17 15:44 Height (Feet): 5 Height (Inches): 4.00 Weight (Pounds): 120 General Appearance: no apparent distress, alert, good eye contact Neurologic: alert, responsive Psychiatric Language/Speech: slow Orientation: person, place Affect: flat Insight: poor Memory: remote Parminder Lau M.D. Jan 06, 2017 16:23
--- NOTE | 2017-01-06 16:44 | General Progress Note ---
Assessment/Plan Status: stable, tolerating diet Assessment/Plan IMPRESSION and PLAN 1. Weight loss. --> Rule out occult malignancy, tumor markers ordered. 2. Malnutrition. 3. Failure to thrive. 4. Coronary artery disease. --> cardiology following 5. Hypertension. 6. Unstable angina. 7. Debilitation. Subjective Date patient seen: Jan 05, 2017 Constitutional: Reports: no symptoms HEENT: Reports: no symptoms Cardiovascular: Reports: no symptoms Respiratory: Reports: no symptoms Gastrointestinal/Abdominal: Reports: no symptoms Genitourinary: Reports: no symptoms Neurologic/Psychiatric: Reports: no symptoms Endocrine: Reports: no symptoms Hematologic/Lymphatic: Reports: anemia Allergies: Coded Allergies: No Known Allergies (Unverified , 01/02/17) Subjective NAD Objective Last 24 Hour Vital Signs Date Time Temp Pulse Resp B/P (MAP) Pulse Ox O2 Delivery O2 Flow Rate FiO2 01/06/17 15:45 120 145/70 01/06/17 15:41 99.1 114 18 145/70 95 Room Air 01/06/17 12:00 115 01/06/17 11:49 98.2 117 18 117/66 95 Room Air 01/06/17 08:41 97.9 108 18 127/69 96 Room Air 01/06/17 08:00 106 01/06/17 07:39 103 18 Room Air 01/06/17 04:20 97.0 95 20 111/64 98 Room Air 01/06/17 04:00 92 01/06/17 00:25 97.4 88 20 116/69 95 Room Air 01/06/17 00:00 110 01/05/17 20:07 78 18 Room Air 01/05/17 20:04 97.7 81 20 131/70 98 Room Air 01/05/17 20:00 74 Intake and Output 01/06/17 01/07/17 19:00 07:00 Intake Total 170 ml Output Total 150 ml Balance 20 ml Intake Oral 170 ml Output Urine Total 150 ml Laboratory Tests 01/06/17 08:40: White Blood Count 9.3, Red Blood Count 5.13, Hemoglobin 16.1, Hematocrit 46.4, Mean Corpuscular Volume 90, Mean Corpuscular Hemoglobin 31.3H, Mean Corpuscular Hemoglobin Concent 34.6, Red Cell Distribution Width 11.8, Platelet Count 160, Mean Platelet Volume 6.5, Neutrophils (%) (Auto) , Lymphocytes (%) (Auto) , Monocytes (%) (Auto) , Eosinophils (%) (Auto) , Basophils (%) (Auto) , Differential Total Cells Counted 100, Neutrophils % (Manual) 94H, Lymphocytes % (Manual) 2L, Monocytes % (Manual) 2, Eosinophils % (Manual) 0, Basophils % ( Manual) 0, Band Neutrophils 2, Platelet Estimate Adequate, Platelet Morphology Normal, Red Blood Cell Morphology Normal, Sodium Level 132L, Potassium Level 4.0 , Chloride Level 96L, Carbon Dioxide Level 26, Anion Gap 10, Blood Urea Nitrogen 23, Creatinine 0.9, Estimat Glomerular Filtration Rate , Glucose Level 147H, Calcium Level 8.8 Height (Feet): 5 Height (Inches): 4.00 Weight (Pounds): 120 General Appearance: no apparent distress EENT: normal ENT inspection Neck: normal alignment Cardiovascular: normal peripheral pulses Extremities: non-tender Skin: warm/dry Bo Turner Jan 06, 2017 16:44
--- NOTE | 2017-01-07 11:55 | General Progress Note ---
Assessment/Plan Assessment/Plan IMPRESSION and PLAN 1. Weight loss. --> Rule out occult malignancy, tumor markers ordered. CEA WNL, others pending. follow up with PCP 2. Malnutrition. 3. Failure to thrive. 4. Coronary artery disease. --> cardiology following 5. Hypertension. 6. Unstable angina. 7. Debilitation. Subjective Date patient seen: Jan 06, 2017 Constitutional: Reports: no symptoms HEENT: Reports: no symptoms Cardiovascular: Reports: no symptoms Respiratory: Reports: no symptoms Gastrointestinal/Abdominal: Reports: no symptoms Genitourinary: Reports: no symptoms Neurologic/Psychiatric: Reports: no symptoms Endocrine: Reports: no symptoms Hematologic/Lymphatic: Reports: no symptoms Allergies: Coded Allergies: No Known Allergies (Unverified , 01/02/17) Subjective tumor markers pending, clear to follow up as outpatient Objective Last 24 Hour Vital Signs Date Time Temp Pulse Resp B/P (MAP) Pulse Ox O2 Delivery O2 Flow Rate FiO2 01/06/17 15:45 120 145/70 01/06/17 15:41 99.1 114 18 145/70 95 Room Air 01/06/17 12:00 115 Height (Feet): 5 Height (Inches): 4.00 Weight (Pounds): 120 General Appearance: no apparent distress EENT: normal ENT inspection Neck: normal inspection Cardiovascular: normal rate Abdomen: normal bowel sounds Extremities: non-tender Edema: mild edema Skin: warm/dry Bo Turner Jan 07, 2017 11:55
[2017-01-08 12:24] LABS: CA 125 9.9 U/mL (Not Estab.); CA15-3 7.9 U/mL (0.0-25.0)
--- NOTE | 2017-01-08 13:39 | Discharge Summary ---
Discharge Summary Hospital Course Date of Admission Jan 02, 2017 at 13:02 Date of Discharge Jan 06, 2017 at 16:45 Admitting Diagnosis ACS HPI Bran Huffman is a 86 year old male who was admitted on Jan 02, 2017 at 13:02 for Acute Coronary Syndrome Hospital Course [id number] Discharge Discharge Disposition Patient was discharged to Home (01) Discharge Diagnoses: Serena Leonardo NP Jan 08, 2017 13:39
--- NOTE | 2017-01-08 14:51 | Diagnostic Imaging Report ---
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 Imaging also reveals patency of the common femoral vein, popliteal vein and calf veins. The greater saphenous vein is also within normal limits. LEFT LEG: Venous imaging reveals a patent deep venous system. There is no evidence of thrombus within the femoral, popliteal or tibial segments. The greater saphenous vein is also within normal limits. Doppler indicates normal spontaneous flow within these segments. There is no evidence of acute deep vein thrombosis.
--- NOTE | 2017-01-09 05:30 | Discharge Summary 2 SIG ---
DATE OF ADMISSION: 01/02/2017 DATE OF DISCHARGE: 01/06/2017 CONSULTANTS: 1. Bo Turner M.D. 2. Parminder Lau M.D. 3. Adryan Amaya M.D. BRIEF HOSPITAL COURSE: The patient is an 86-year-old male with history of hypertension and coronary artery disease, who was brought in by paramedics due to worsening dyspnea for the past three to four months. The patient was at doctor's office and complained of chest pain. Paramedics were then called in. He was given aspirin and nitroglycerin and was taken to [facility] ED where on evaluation, EKG showed left ventricular hypertrophy and left axis deviation with no acute changes. Chest x-ray showed cardiomegaly with increased interstitial markings bilaterally. Initial troponin was negative. He was admitted to telemetry for acute coronary syndrome and dyspnea. He underwent a cardiac evaluation. Echocardiogram showed ejection fraction 50% to 55% with mildly depressed systolic function and wall motion. There was no evidence of congestive heart failure. Venous duplex of lower extremity was negative for DVT bilaterally. Troponin had been negative. He also had weight loss with decrease in appetite. He was followed by oncologist for possible malignancy. Tumor markers are normal. He was diagnosed with dementia and depression and was continued with Aricept and Lexapro. He had an open wound on the left lower quadrant of the abdomen, etiology unknown. He was given wound care and daily wound dressing. The patient was eventually discharged home. Advised to follow up with PCP for workup for possible occult malignancy. FINAL DIAGNOSES: 1. Coronary artery disease. 2. Costochondritis. 3. Hypertension. 4. Weight loss with malnutrition and failure to thrive. 5. Hypertension. 6. Unstable angina. 7. Dementia. 8. Depression. 9. Open wound on the left lower quadrant, etiology unknown, present on admission. DISPOSITION: The patient was discharged to home. DISCHARGE MEDICATIONS: Refer to medication list. FOLLOWUP: Follow up with the PCP in a week. ACTIVITY: As tolerated. Raffy Ferguson M.D. I have been assigned to dictate discharge summary on this account and I was not involved in the patient's management. Serena Leonardo N.P. DR: RASHAWN JOB#: [id number] CC:
== END 2017-01-06 16:45 | disposition home or self-care (01) | DRG 303 ==
LOC: EDBD 12:37 → EMR 13:00 → 2E 13:02 → EDBEDREQ 14:42 → UNDODISIN 01-04 14:00 → 2E 01-06 00:37
DX: I25.110 Atherosclerotic heart disease of native coronary artery with unstable angina pectoris (principal); E46 Unspecified protein-calorie malnutrition; F03.90 Unspecified dementia, unspecified severity, without behavioral disturbance, psychotic disturbance, mood disturbance, and anxiety; M94.0 Chondrocostal junction syndrome [Tietze]; I10 Essential (primary) hypertension; R62.7 Adult failure to thrive; F32.9 Major depressive disorder, single episode, unspecified; S31.104A Unspecified open wound of abdominal wall, left lower quadrant without penetration into peritoneal cavity, initial encounter; X58.XXXA Exposure to other specified factors, initial encounter; N40.0 Benign prostatic hyperplasia without lower urinary tract symptoms; Z23 Encounter for immunization
CPT/HCPCS: 36415; 71010; 80048; 80053; 80061; 81003; 82105; 82140; 82378; 82550; 83880; 84443; 84484; 85007; 85025; 85379; 85610; 85730; 86140; 86300; 86301; 86304; 86705; 86709; 86803; 87340; 90732; 93005; 93306; 93970; 94664; 97802; 99285